=== PATIENT | male | born 1970 | race Caucasian/White ===

== ENCOUNTER 2020-07-19 17:31 | Inpatient (IN) | payer MEDICAID ==
[~2020-07-19] VITALS: Ht 175.3 cm; Wt 70.9 kg
[2020-07-19] MEDS ORDERED: morphine 4 MG/ML inj SYRINge IV PRN (18:25)
[2020-07-19] MEDS ORDERED: normal saline 1000ML IV soln IVB ONE (18:25)
[2020-07-19] MEDS ORDERED: ondansetron/PF 4mg/2ml inj IV ONE (18:25)
[2020-07-19 18:30] LABS: BASOPHILS % (AUTO) 0.2 % (0-1); EOSINOPHILS # (AUTO) 0.1 X10'3 (0-0.9); EOSINOPHILS % (AUTO) 0.9 % (0-6); HEMATOCRIT 40.4 % (42.0-52.0); HEMOGLOBIN 13.6 g/dl (14.0-17.9); LYMPHOCYTES % (AUTO) 11.2 % (21-51); MEAN CORPUSCULAR HEMOGLOBIN 31.7 PG (27.0-31.0); MEAN CORPUSCULAR HGB CONC 33.6 g/dL (33.0-36.5); MEAN CORPUSCULAR VOLUME 94.3 FL (78-98); MEAN PLATELET VOLUME 7.8 FL (7.4-10.4); MONOCYTES # (AUTO) 1.1 X10'3 (0-0.9); MONOCYTES % (AUTO) 12.8 % (2-12); NEUTROPHILS # (AUTO) 6.6 X10'3 (1.8-7.7); NEUTROPHILS % (AUTO) 74.9 % (42-75); PLATELET COUNT 223 X10'3 (140-440); RED BLOOD COUNT 4.29 X10'6 (4.70-6.10); RED CELL DISTRIBUTION WIDTH 13.1 % (11.5-14.5); WHITE BLOOD COUNT 8.8 X10'3 (4.5-11.0)
[2020-07-19 18:45] LABS: ALANINE AMINOTRANSFERASE 11 U/L (12-78); ALBUMIN 3.1 G/DL (3.4-5.0); ALBUMIN/GLOBULIN RATIO 0.6 (1.1-1.5); ALKALINE PHOSPHATASE 79 IU/L (46-116); ANION GAP 6 (8-16); ASPARTATE AMINO TRANSFERASE 11 U/L (10-37); BILIRUBIN,TOTAL 0.3 MG/DL (0.1-1.0); BLOOD UREA NITROGEN 10 MG/DL (7-18); BUN/CREATININE RATIO 11.6 (5.4-32.0); CALCIUM 8.7 MG/DL (8.5-10.1); CHLORIDE 103 MMOL/L (99-107); CREATININE 0.86 MG/DL (0.60-1.10); GLUCOSE 94 MG/DL (70-104); LIPASE 92 U/L (73-393); POTASSIUM 4.2 MMOL/L (3.5-5.1); SODIUM 141 MMOL/L (135-145); TOTAL CARBON DIOXIDE 31.7 MMOL/L (24-32); TOTAL PROTEIN 8.1 G/DL (6.4-8.2); eGFR > 90 ML/MIN
[2020-07-19] MEDS ORDERED: piperacillin/tazo 3.375gm/50ml 50 ML IV ONE (20:25)
[2020-07-19] MEDS ORDERED: bisacodyl 10mg suppository rectal RC PRN (20:35)
[2020-07-19] MEDS ORDERED: magnesium 2GM in 50ml NS 50 ML IV PRN (20:35)
[2020-07-19] MEDS ORDERED: ondansetron/PF 4mg/2ml inj IV PRN (20:35)
[2020-07-19] MEDS ORDERED: magnesium 4gm in 100ml NS 100 ML IV PRN (20:35)
[2020-07-19] MEDS ORDERED: metoclopramide 5 mg/ml inj IV PRN (20:35)
[2020-07-19] MEDS ORDERED: acetaminophen 325mg tablet PO PRN ×2 (20:35)
[2020-07-19] MEDS ORDERED: magnesium Cl slow-release 64mg tablet PO PRN (20:35)
[2020-07-19] MEDS ORDERED: mag hydrox/Alum hydrox/simeth 30ml oral suspension PO PRN (20:35)
[2020-07-19] MEDS ORDERED: HYDROcodone/acetaminophen 5mg/325mg tablet PO PRN (20:35)
[2020-07-19] MEDS ORDERED: potassium CL 10mEq/100ml bag 100 ML IV PRN ×2 (20:35)
[2020-07-19] MEDS ORDERED: magnesium hydroxide 30ml (MOM) UD suspension PO PRN (20:35)
[2020-07-19] MEDS ORDERED: potassium Cl 20 mEq SR tablet PO PRN ×2 (20:35)
[2020-07-19] MEDS ORDERED: LEVE750T6 PO (20:48)
[2020-07-19] MEDS ORDERED: LAMO150T2 PO (20:49)
[2020-07-19 20:51] LABS: PARTIAL THROMBOPLASTIN TIME 32 SECONDS (22-32)
--- NOTE | 2020-07-19 21:04 | NUR ---
Received report from Hemanth RENAE in the ER. Patient arrived at unit at 2145 on a gurney he was able to walk 10 feet to the bed, s.l., a/o, room air,vss, no sign of distress will continue to monitor
--- NOTE | 2020-07-19 21:23 | NUR ---
MD Knight at bedside
[2020-07-19] MEDS: normal saline 1000ml 1,000 ML IV SCH (21:58)
[2020-07-19 22:00] VITALS: BP 102/63
[2020-07-19] MEDS: HYDROmorphone inj. 0.5 MG/0.5 ML DISP.SYRIN IV PRN (22:07)
[2020-07-20] VITALS (14 sets, daily range): BP systolic 89–148; BP diastolic 55–67
[2020-07-20] MEDS: HYDROcodone/acetaminophen 10/325mg tab PO PRN ×5 (00:46→22:54)
[2020-07-20 00:59] LABS: CLARITY,URINE CLEAR (Clear); COLOR,URINE YELLOW (Yellow); GLUCOSE, URINE NEGATIVE (Neg); KETONES,URINE NEGATIVE (Neg); LEUKOCYTE ESTERASE ,URINE NEGATIVE (Neg); NITRITES, URINE NEGATIVE (Neg); OCCULT BLOOD,URINE NEGATIVE (Neg); PROTEIN,URINE NEGATIVE (Neg); UROBILINOGEN,URINE 0.2 E.U/dL (0.2-1.0)
[2020-07-20 01:02] LABS: UA COLLECTION TYPE CLN CATCH MIDSTREAM
[2020-07-20] MEDS: piperacillin/tazo 3.375gm/50ml 50 ML IV SCH ×3 (05:17→22:24)
[2020-07-20 05:22] LABS: BASOPHILS % (AUTO) 0.5 % (0-1); EOSINOPHILS # (AUTO) 0.1 X10'3 (0-0.9); EOSINOPHILS % (AUTO) 1.2 % (0-6); HEMATOCRIT 37.8 % (42.0-52.0); HEMOGLOBIN 12.7 g/dl (14.0-17.9); LYMPHOCYTES # (AUTO) 1.4 X10'3 (1.1-4.8); LYMPHOCYTES % (AUTO) 15.5 % (21-51); MEAN CORPUSCULAR HEMOGLOBIN 31.7 PG (27.0-31.0); MEAN CORPUSCULAR HGB CONC 33.6 g/dL (33.0-36.5); MEAN CORPUSCULAR VOLUME 94.2 FL (78-98); MEAN PLATELET VOLUME 8.1 FL (7.4-10.4); MONOCYTES # (AUTO) 1.1 X10'3 (0-0.9); MONOCYTES % (AUTO) 12.1 % (2-12); NEUTROPHILS # (AUTO) 6.5 X10'3 (1.8-7.7); NEUTROPHILS % (AUTO) 70.7 % (42-75); PLATELET COUNT 197 X10'3 (140-440); RED BLOOD COUNT 4.01 X10'6 (4.70-6.10); RED CELL DISTRIBUTION WIDTH 13.3 % (11.5-14.5); WHITE BLOOD COUNT 9.2 X10'3 (4.5-11.0)
[2020-07-20 05:43] LABS: ALANINE AMINOTRANSFERASE 10 U/L (12-78); ALBUMIN 2.7 G/DL (3.4-5.0); ALBUMIN/GLOBULIN RATIO 0.6 (1.1-1.5); ALKALINE PHOSPHATASE 68 IU/L (46-116); ANION GAP 6 (8-16); ASPARTATE AMINO TRANSFERASE 9 U/L (10-37); BILIRUBIN,TOTAL 0.7 MG/DL (0.1-1.0); BLOOD UREA NITROGEN 10 MG/DL (7-18); BUN/CREATININE RATIO 10.8 (5.4-32.0); CALCIUM 8.6 MG/DL (8.5-10.1); CHLORIDE 107 MMOL/L (99-107); CREATININE 0.93 MG/DL (0.60-1.10); GLUCOSE 77 MG/DL (70-104); MAGNESIUM 2.1 MG/DL (1.5-2.4); POTASSIUM 4.2 MMOL/L (3.5-5.1); SODIUM 143 MMOL/L (135-145); TOTAL CARBON DIOXIDE 29.7 MMOL/L (24-32); eGFR 86 ML/MIN
--- NOTE | 2020-07-20 06:20 | NUR ---
Problems reprioritized. Patient report given, questions answered & plan of care reviewed with Shauna RENAE.
--- NOTE | 2020-07-20 06:33 | NUR ---
Patient in room [facility] 345. I have received report from BATOOL Pineda and had the opportunity to ask questions and assume patient care.
--- NOTE | 2020-07-20 06:36 | NUR ---
Patient in room [facility] 345. I have received report from BATOOL Pineda and had the opportunity to ask questions and assume patient care.
[2020-07-20] MEDS: levetiracetam 250mg tablet PO SCH ×2 (07:08→19:10)
[2020-07-20] MEDS: lamoTRIgine 100mg tablet PO SCH ×2 (07:08→19:10)
[2020-07-20] MEDS: lamoTRIgine 25mg tablet PO SCH ×2 (07:09→19:11)
[2020-07-20] MEDS: normal saline 1000ml 1,000 ML IV SCH ×3 (07:48→22:02)
[2020-07-20] MEDS: K and/or MAG REPLACEMENT MC SCH ×2 (08:00→20:00)
[2020-07-20] MEDS ORDERED: midazolam 2 mg/2 ml injection ONE (08:32)
[2020-07-20] MEDS ORDERED: fentaNYL/PF 50MCG/1 ML 2ML syringe ONE ×2 (08:32→09:04)
--- NOTE | 2020-07-20 08:35 | NUR ---
Patient was taken down to IR, 0835.
[2020-07-20] MEDS: HYDROmorphone inj. 0.5 MG/0.5 ML DISP.SYRIN IV PRN (09:47)
--- NOTE | 2020-07-20 10:08 | NUR ---
Patient arrive back to room 345B at 0935, A&O x4. pt complained of incisional pain. Pain intervention, Dilaudid, given as order by MD. Vital signs are stable. Patient is resting in bed.
--- NOTE | 2020-07-20 18:01 | NUR ---
Student documentation: I have reviewed and agree with all interventions, assessments performed and documented by SN Shirin. Student Medication Administration: For this medication-pass time frame, all medication were reviewed, dispensed, administered and documented per hospital policy by Sn Shirin.
--- NOTE | 2020-07-20 18:11 | NUR ---
Problems reprioritized. Patient report given, questions answered & plan of care reviewed with BATOOL Pineda.
--- NOTE | 2020-07-20 18:14 | NUR ---
Patient in room [facility] 345. I have received report from Shauna RENAE and had the opportunity to ask questions and assume patient care.
--- NOTE | 2020-07-20 18:50 | NUR ---
Problems reprioritized. Patient report given, questions answered & plan of care reviewed with BATOOL Pineda.
[2020-07-20] MEDS: magnesium hydroxide 30ml (MOM) UD suspension PO SCH (19:09)
[2020-07-20] MEDS: lactobacillus rhamnosus 10,000 MMU CELLS/CAPSULE PO SCH (19:10)
--- NOTE | 2020-07-20 21:35 | NUR ---
added jose in interventions under the wrong patient, completed it
[2020-07-21] VITALS: BP 88/58
[2020-07-21 05:04] LABS: BASOPHILS % (AUTO) 0.4 % (0-1); EOSINOPHILS # (AUTO) 0.1 X10'3 (0-0.9); EOSINOPHILS % (AUTO) 2.3 % (0-6); HEMATOCRIT 33.4 % (42.0-52.0); HEMOGLOBIN 11.6 g/dl (14.0-17.9); LYMPHOCYTES # (AUTO) 1.4 X10'3 (1.1-4.8); LYMPHOCYTES % (AUTO) 26.3 % (21-51); MEAN CORPUSCULAR HEMOGLOBIN 32.5 PG (27.0-31.0); MEAN CORPUSCULAR HGB CONC 34.6 g/dL (33.0-36.5); MEAN CORPUSCULAR VOLUME 94.2 FL (78-98); MEAN PLATELET VOLUME 7.5 FL (7.4-10.4); MONOCYTES # (AUTO) 0.8 X10'3 (0-0.9); MONOCYTES % (AUTO) 14.9 % (2-12); NEUTROPHILS # (AUTO) 2.9 X10'3 (1.8-7.7); NEUTROPHILS % (AUTO) 56.1 % (42-75); PLATELET COUNT 192 X10'3 (140-440); RED BLOOD COUNT 3.55 X10'6 (4.70-6.10); RED CELL DISTRIBUTION WIDTH 13.2 % (11.5-14.5); WHITE BLOOD COUNT 5.2 X10'3 (4.5-11.0)
[2020-07-21 05:27] LABS: ALANINE AMINOTRANSFERASE 10 U/L (12-78); ALBUMIN 2.4 G/DL (3.4-5.0); ALBUMIN/GLOBULIN RATIO 0.6 (1.1-1.5); ALKALINE PHOSPHATASE 66 IU/L (46-116); ANION GAP 5 (8-16); ASPARTATE AMINO TRANSFERASE 10 U/L (10-37); BILIRUBIN,TOTAL 0.3 MG/DL (0.1-1.0); BLOOD UREA NITROGEN 11 MG/DL (7-18); BUN/CREATININE RATIO 12.8 (5.4-32.0); CHLORIDE 102 MMOL/L (99-107); CREATININE 0.86 MG/DL (0.60-1.10); GLUCOSE 91 MG/DL (70-104); POTASSIUM 3.8 MMOL/L (3.5-5.1); SODIUM 137 MMOL/L (135-145); TOTAL PROTEIN 6.5 G/DL (6.4-8.2); eGFR > 90 ML/MIN
[2020-07-21] MEDS: HYDROcodone/acetaminophen 10/325mg tab PO PRN ×4 (05:38→20:33)
[2020-07-21] MEDS: piperacillin/tazo 3.375gm/50ml 50 ML IV SCH ×3 (05:39→22:24)
[2020-07-21] MEDS: normal saline 1000ml 1,000 ML IV SCH ×2 (05:57→16:28)
--- NOTE | 2020-07-21 06:22 | NUR ---
Problems reprioritized. Patient report given, questions answered & plan of care reviewed with Rosette RENAE.
[2020-07-21 07:00] VITALS: BP 90/52
[2020-07-21] MEDS: K and/or MAG REPLACEMENT MC SCH ×2 (08:00→20:00)
[2020-07-21] MEDS: magnesium hydroxide 30ml (MOM) UD suspension PO SCH ×2 (08:29→20:27)
[2020-07-21] MEDS: lamoTRIgine 25mg tablet PO SCH ×2 (08:30→20:27)
[2020-07-21] MEDS: levetiracetam 250mg tablet PO SCH ×2 (08:30→20:28)
[2020-07-21] MEDS: lamoTRIgine 100mg tablet PO SCH ×2 (08:30→20:27)
[2020-07-21] MEDS: lactobacillus rhamnosus 10,000 MMU CELLS/CAPSULE PO SCH ×2 (08:31→20:28)
[2020-07-21] MEDS: HYDROmorphone inj. 0.5 MG/0.5 ML DISP.SYRIN IV PRN (08:37)
[2020-07-21 11:00] VITALS: BP 94/62
--- NOTE | 2020-07-21 16:18 | NUR ---
Student documentation: I have reviewed all interventions, assessments performed and documented by Mary OJEDA and Asael OJEDA of [facility].
--- NOTE | 2020-07-21 18:40 | NUR ---
Problems reprioritized. Patient report given, questions answered & plan of care reviewed with BATOOL Mueller.
--- NOTE | 2020-07-21 18:42 | NUR ---
Patient in room [facility]IME 345. I have received report from ALVIN RENAE and had the opportunity to ask questions and assume patient care.
[2020-07-21 20:00] VITALS: BP 108/69
[2020-07-22] VITALS: BP 107/73
[2020-07-22] MEDS: normal saline 1000ml 1,000 ML IV SCH ×3 (02:36→22:30)
[2020-07-22] MEDS: HYDROcodone/acetaminophen 10/325mg tab PO PRN ×4 (02:40→20:12)
[2020-07-22] MEDS: piperacillin/tazo 3.375gm/50ml 50 ML IV SCH ×3 (05:53→22:25)
[2020-07-22 05:59] LABS: BASOPHILS % (AUTO) 0.5 % (0-1); EOSINOPHILS # (AUTO) 0.1 X10'3 (0-0.9); EOSINOPHILS % (AUTO) 2.5 % (0-6); HEMATOCRIT 36.5 % (42.0-52.0); HEMOGLOBIN 12.3 g/dl (14.0-17.9); LYMPHOCYTES # (AUTO) 1.2 X10'3 (1.1-4.8); LYMPHOCYTES % (AUTO) 21.3 % (21-51); MEAN CORPUSCULAR HGB CONC 33.8 g/dL (33.0-36.5); MEAN CORPUSCULAR VOLUME 94.7 FL (78-98); MEAN PLATELET VOLUME 7.4 FL (7.4-10.4); MONOCYTES # (AUTO) 0.9 X10'3 (0-0.9); MONOCYTES % (AUTO) 15.1 % (2-12); NEUTROPHILS # (AUTO) 3.5 X10'3 (1.8-7.7); NEUTROPHILS % (AUTO) 60.6 % (42-75); PLATELET COUNT 240 X10'3 (140-440); RED BLOOD COUNT 3.86 X10'6 (4.70-6.10); RED CELL DISTRIBUTION WIDTH 13.1 % (11.5-14.5); WHITE BLOOD COUNT 5.8 X10'3 (4.5-11.0)
[2020-07-22 06:01] LABS: ALANINE AMINOTRANSFERASE 13 U/L (12-78); ALBUMIN 2.8 G/DL (3.4-5.0); ALBUMIN/GLOBULIN RATIO 0.6 (1.1-1.5); ALKALINE PHOSPHATASE 69 IU/L (46-116); ANION GAP 5 (8-16); ASPARTATE AMINO TRANSFERASE 13 U/L (10-37); BILIRUBIN,TOTAL 0.3 MG/DL (0.1-1.0); BLOOD UREA NITROGEN 8 MG/DL (7-18); BUN/CREATININE RATIO 8.8 (5.4-32.0); CALCIUM 8.4 MG/DL (8.5-10.1); CHLORIDE 106 MMOL/L (99-107); CREATININE 0.91 MG/DL (0.60-1.10); GLUCOSE 82 MG/DL (70-104); MAGNESIUM 2.6 MG/DL (1.5-2.4); POTASSIUM 3.9 MMOL/L (3.5-5.1); SODIUM 140 MMOL/L (135-145); TOTAL PROTEIN 7.4 G/DL (6.4-8.2); eGFR 89 ML/MIN
--- NOTE | 2020-07-22 06:30 | NUR ---
Patient in room JAIME 345. I have received report from Ami RENAE and had the opportunity to ask questions and assume patient care.
[2020-07-22] MEDS: lactobacillus rhamnosus 10,000 MMU CELLS/CAPSULE PO SCH ×2 (07:29→20:11)
[2020-07-22] MEDS: levetiracetam 250mg tablet PO SCH ×2 (07:30→20:10)
[2020-07-22] MEDS: lamoTRIgine 25mg tablet PO SCH ×2 (07:31→20:10)
[2020-07-22] MEDS: lamoTRIgine 100mg tablet PO SCH ×2 (07:32→20:10)
[2020-07-22] MEDS: magnesium hydroxide 30ml (MOM) UD suspension PO SCH ×2 (07:33→20:00)
[2020-07-22 07:40] VITALS: BP 105/61
[2020-07-22] MEDS: K and/or MAG REPLACEMENT MC SCH ×2 (08:00→20:00)
[2020-07-22] MEDS: diatr meglu/diatrizoate 30ml oral sol.-(3 dose) bottle PO SCH ×3 (10:41→13:13)
[2020-07-22 11:00] VITALS: BP 93/57
--- NOTE | 2020-07-22 15:52 | NUR ---
Student documentation: I have reviewed all interventions, assessments performed and documented by Asael OJEDA from [facility].
[2020-07-22 18:00] VITALS: BP 112/66
--- NOTE | 2020-07-22 18:27 | NUR ---
Problems reprioritized. Patient report given, questions answered & plan of care reviewed with Ami RENAE.
--- NOTE | 2020-07-22 18:30 | NUR ---
Patient in room JAIME 345. I have received report from BOBY RENAE and had the opportunity to ask questions and assume patient care.
[2020-07-23] VITALS: BP 106/52
[2020-07-23] MEDS: piperacillin/tazo 3.375gm/50ml 50 ML IV SCH (05:21)
[2020-07-23 05:23] LABS: ALANINE AMINOTRANSFERASE 11 U/L (12-78); ALBUMIN 2.8 G/DL (3.4-5.0); ALBUMIN/GLOBULIN RATIO 0.6 (1.1-1.5); ALKALINE PHOSPHATASE 77 IU/L (46-116); ANION GAP 8 (8-16); ASPARTATE AMINO TRANSFERASE 11 U/L (10-37); BASOPHILS % (AUTO) 0.6 % (0-1); BILIRUBIN,TOTAL 0.2 MG/DL (0.1-1.0); BLOOD UREA NITROGEN 8 MG/DL (7-18); BUN/CREATININE RATIO 8.2 (5.4-32.0); CALCIUM 8.5 MG/DL (8.5-10.1); CHLORIDE 103 MMOL/L (99-107); CREATININE 0.98 MG/DL (0.60-1.10); EOSINOPHILS # (AUTO) 0.2 X10'3 (0-0.9); EOSINOPHILS % (AUTO) 3.6 % (0-6); GLUCOSE 110 MG/DL (70-104); HEMATOCRIT 39.3 % (42.0-52.0); HEMOGLOBIN 13.2 g/dl (14.0-17.9); LYMPHOCYTES # (AUTO) 1.3 X10'3 (1.1-4.8); LYMPHOCYTES % (AUTO) 22.9 % (21-51); MAGNESIUM 2.4 MG/DL (1.5-2.4); MEAN CORPUSCULAR HEMOGLOBIN 31.5 PG (27.0-31.0); MEAN CORPUSCULAR HGB CONC 33.5 g/dL (33.0-36.5); MEAN PLATELET VOLUME 7.7 FL (7.4-10.4); MONOCYTES # (AUTO) 0.9 X10'3 (0-0.9); MONOCYTES % (AUTO) 16.1 % (2-12); NEUTROPHILS # (AUTO) 3.3 X10'3 (1.8-7.7); NEUTROPHILS % (AUTO) 56.8 % (42-75); PLATELET COUNT 274 X10'3 (140-440); RED BLOOD COUNT 4.19 X10'6 (4.70-6.10); RED CELL DISTRIBUTION WIDTH 13.3 % (11.5-14.5); SODIUM 139 MMOL/L (135-145); TOTAL CARBON DIOXIDE 28.5 MMOL/L (24-32); TOTAL PROTEIN 7.5 G/DL (6.4-8.2); WHITE BLOOD COUNT 5.7 X10'3 (4.5-11.0); eGFR 81 ML/MIN
--- NOTE | 2020-07-23 06:30 | NUR ---
Problems reprioritized. Patient report given, questions answered & plan of care reviewed with BRIAN RENAE.
--- NOTE | 2020-07-23 06:39 | NUR ---
Patient in room JAIME 340. I have received report from BATOOL Mueller and had the opportunity to ask questions and assume patient care.
[2020-07-23] MEDS: lactobacillus rhamnosus 10,000 MMU CELLS/CAPSULE PO SCH (07:16)
[2020-07-23] MEDS: levetiracetam 250mg tablet PO SCH (07:17)
[2020-07-23] MEDS: lamoTRIgine 100mg tablet PO SCH (07:17)
[2020-07-23] MEDS: lamoTRIgine 25mg tablet PO SCH (07:17)
[2020-07-23] MEDS: K and/or MAG REPLACEMENT MC SCH (07:19)
[2020-07-23] MEDS: magnesium hydroxide 30ml (MOM) UD suspension PO SCH (08:00)
[2020-07-23 09:54] VITALS: BP 103/65
[2020-07-23] MEDS ORDERED: LEVO500T89 PO (10:01)
[2020-07-23] MEDS ORDERED: METR-159 PO (10:01)
[2020-07-23] MEDS ORDERED: HYDR-4383 PO (10:01)
--- NOTE | 2020-07-23 11:54 | NUR ---
Shirin OJEDA, went over discharge paperwork with patient (Kelly). Patient was alert and oriented x4 when going over discharge paperwork. Allowed time for questions and concerns. Patient stated that he understood the discharge packet and was going to make a follow up appointment with the primary provider. Patient was given a paper prescription for [place] and was made aware about the side affects of the medication. Patient was discharged with all personal belongings and escorted down by hospital personale.
--- NOTE | 2020-07-23 11:56 | NUR ---
Student Medication Administration: For this medication-pass time frame, all medication were reviewed, dispensed, administered and documented per hospital policy by SN Shirin. Student documentation: I have reviewed and agree with all interventions, assessments performed and documented by BATOOL Carpio .
--- NOTE | 2020-07-23 12:00 | NUR ---
Patient alert and oriented in no apparent acute distress and with no complaints. Discharge instructions and new prescriptions discussed with patient by SN Shirin. This RN followed up with patient with discharge teaching and asked if he had any questions. [place] education reinforced. All questions answered. Patient was dc'd with all personal belongings. He was escorted out in wheelchair with varnishing unit operatorNichole. Addendum: 07/23/20 at 1237 by Shauna Dasilva RN patient MATT drain was removed by IR prior to DC. Dressing to where Matt insertion site was CDI. [place] prescription was handed to patient.
== END 2020-07-23 11:26 | disposition home or self-care (01) | DRG 244 ==
LOC: ER 17:33 → ED HOLD 20:34 → SUR 3N 21:45
PROVIDERS: ADMIT Family Medicine; ATTEND Family Medicine
DX: K57.20 Diverticulitis of large intestine with perforation and abscess without bleeding (principal); D64.9 Anemia, unspecified; G40.909 Epilepsy, unspecified, not intractable, without status epilepticus; K59.00 Constipation, unspecified
CPT/HCPCS: 36415; 49406; 71045; 74176; 80053; 81003; 83605; 83690; 83735; 85025; 85610; 85730; 87040; 87070; 87077; 87081; 87186; 93005; 96374; 99285; G0378; J1170; J2250; J2270; J2405; J2543; J3010; J7030; Q9963

== ENCOUNTER 2020-11-10 18:53 | Emergency (ER) | payer MEDICAID ==
[~2020-11-10] VITALS: Ht 172.7 cm; Wt 72.7 kg
[~2020-11-10 18:53] MED LIST: HYDR-4383 PO; LAMO150T2 PO; LEVE750T6 PO
[2020-11-10 19:23] LABS: BASOPHILS % (AUTO) 0.5 % (0-1); EOSINOPHILS % (AUTO) 0.5 % (0-6); LYMPHOCYTES % (AUTO) 10.7 % (21-51); MEAN CORPUSCULAR HEMOGLOBIN 32.1 PG (27.0-31.0); MEAN CORPUSCULAR HGB CONC 34.1 g/dL (33.0-36.5); MEAN PLATELET VOLUME 8.4 FL (7.4-10.4); MONOCYTES # (AUTO) 0.5 X10'3 (0-0.9); MONOCYTES % (AUTO) 5.4 % (2-12); NEUTROPHILS # (AUTO) 7.7 X10'3 (1.8-7.7); NEUTROPHILS % (AUTO) 82.9 % (42-75); PLATELET COUNT 147 X10'3 (140-440); RED BLOOD COUNT 4.37 X10'6 (4.70-6.10); RED CELL DISTRIBUTION WIDTH 13.4 % (11.5-14.5); WHITE BLOOD COUNT 9.3 X10'3 (4.5-11.0)
[2020-11-10 19:41] LABS: ALANINE AMINOTRANSFERASE 17 U/L (12-78); ALBUMIN 3.6 G/DL (3.4-5.0); ALBUMIN/GLOBULIN RATIO 0.8 (1.1-1.5); ALKALINE PHOSPHATASE 95 IU/L (46-116); AMYLASE 33 U/L (25-115); ANION GAP 9 (8-16); ASPARTATE AMINO TRANSFERASE 14 U/L (10-37); BLOOD UREA NITROGEN 12 MG/DL (7-18); BUN/CREATININE RATIO 10.9 (5.4-32.0); CHLORIDE 102 MMOL/L (99-107); GLUCOSE 89 MG/DL (70-104); LIPASE 95 U/L (73-393); POTASSIUM 3.6 MMOL/L (3.5-5.1); SODIUM 139 MMOL/L (135-145); TOTAL CARBON DIOXIDE 27.7 MMOL/L (24-32); TOTAL PROTEIN 7.9 G/DL (6.4-8.2); eGFR 71 ML/MIN
[2020-11-10] MEDS ORDERED: HYDR-3965 PO (21:05)
[2020-11-10] MEDS ORDERED: METR-159 PO (21:05)
[2020-11-10] MEDS ORDERED: ONDA4TAB6 PO (21:05)
[2020-11-10] MEDS ORDERED: CIPR-259 PO (21:05)
[2020-11-10] MEDS ORDERED: ciprofloxacin 250mg tablet PO ONE (21:15)
[2020-11-10] MEDS ORDERED: metroNIDAZOLE 500mg tablet PO ONE (21:15)
[2020-11-10 21:16] VITALS: BP 113/76
== END 2020-11-10 21:26 | disposition home or self-care (01) ==
LOC: ER 18:54
DX: R10.32 Left lower quadrant pain (principal); K59.00 Constipation, unspecified; Z79.2 Long term (current) use of antibiotics; Z79.899 Other long term (current) drug therapy
CPT/HCPCS: 36415; 80053; 82150; 83690; 85025; 99283; J3490

== ENCOUNTER 2022-07-06 19:02 | Emergency (ER) | payer MEDICAID ==
[~2022-07-06] VITALS: Ht 175.3 cm; Wt 81.8 kg
[~2022-07-06 19:02] MED LIST changes: +ONDA4TAB6 PO
[2022-07-06 19:39] LABS: BASOPHILS % (AUTO) 0.6 % (0-1); EOSINOPHILS # (AUTO) 0.1 X10'3 (0-0.9); EOSINOPHILS % (AUTO) 1.4 % (0-6); HEMATOCRIT 42.6 % (42.0-52.0); HEMOGLOBIN 14.7 g/dl (14.0-17.9); LYMPHOCYTES # (AUTO) 1.6 X10'3 (1.1-4.8); LYMPHOCYTES % (AUTO) 32.6 % (21-51); MEAN CORPUSCULAR HEMOGLOBIN 33.2 PG (27.0-31.0); MEAN CORPUSCULAR HGB CONC 34.4 g/dL (33.0-36.5); MEAN CORPUSCULAR VOLUME 96.3 FL (78-98); MEAN PLATELET VOLUME 8.4 FL (7.4-10.4); MONOCYTES # (AUTO) 0.6 X10'3 (0-0.9); MONOCYTES % (AUTO) 12.9 % (2-12); NEUTROPHILS # (AUTO) 2.5 X10'3 (1.8-7.7); NEUTROPHILS % (AUTO) 52.5 % (42-75); PLATELET COUNT 134 X10'3 (140-440); RED BLOOD COUNT 4.43 X10'6 (4.70-6.10); RED CELL DISTRIBUTION WIDTH 13.8 % (11.5-14.5); WHITE BLOOD COUNT 4.8 X10'3 (4.5-11.0)
[2022-07-06 19:56] LABS: ALANINE AMINOTRANSFERASE 20 U/L (12-78); ALBUMIN 3.5 G/DL (3.4-5.0); ALBUMIN/GLOBULIN RATIO 0.9 (1.1-1.5); ALKALINE PHOSPHATASE 89 IU/L (46-116); ANION GAP 6 (8-16); ASPARTATE AMINO TRANSFERASE 17 U/L (10-37); BILIRUBIN,TOTAL 0.3 MG/DL (0.1-1.0); BLOOD UREA NITROGEN 13 MG/DL (7-18); BUN/CREATININE RATIO 15.1 (5.4-32.0); CALCIUM 8.5 MG/DL (8.5-10.1); CHLORIDE 105 MMOL/L (99-107); CREATININE 0.86 MG/DL (0.60-1.10); GLUCOSE 88 MG/DL (70-104); MAGNESIUM 2.1 MG/DL (1.5-2.4); SODIUM 140 MMOL/L (135-145); TOTAL CARBON DIOXIDE 29.2 MMOL/L (24-32); TOTAL PROTEIN 7.4 G/DL (6.4-8.2); eGFR > 90 ML/MIN
[2022-07-06 20:04] LABS: ETHANOL < 0.010 GM/DL (0.0-0.010)
--- NOTE | 2022-07-06 20:27 | NUR ---
reoriented pt. as to why he is in the hospital. pt. still has confusion and does not remember the seizure. [facility] times for nurse to ask pt. where car keys are, pt is unable to remember at this time.
--- NOTE | 2022-07-06 21:12 | NUR ---
pt. remembers were keys are. roomate will come to hospital once she finds the car keys.
[2022-07-06 21:48] VITALS: BP 92/53
--- NOTE | 2022-07-06 23:11 | NUR ---
PT. IS BACK AT BASELINE. ABLE TO ANSWER QUESTIONS APPROPRIATELY.
== END 2022-07-06 23:31 | disposition home or self-care (01) ==
LOC: ER 19:03
DX: G40.909 Epilepsy, unspecified, not intractable, without status epilepticus (principal); Z86.69 Personal history of other diseases of the nervous system and sense organs; Z79.899 Other long term (current) drug therapy
CPT/HCPCS: 36415; 70450; 80053; 80177; 80320; 83735; 85025; 93005; 99285

== ENCOUNTER 2023-01-23 13:46 | Emergency (ER) | payer MEDICAID ==
[~2023-01-23] VITALS: Ht 172.7 cm; Wt 77.3 kg
[2023-01-23] MEDS ORDERED: LORazepam 1 MG tablet PO ONE (14:50)
[2023-01-23] MEDS ORDERED: lamoTRIgine 100mg tablet PO ONE (14:50)
[2023-01-23] MEDS ORDERED: lamoTRIgine 100mg tablet PO SCH (14:50)
[2023-01-23 15:52] VITALS: BP 110/78
== END 2023-01-23 15:55 | disposition home or self-care (01) ==
LOC: ER 13:46
DX: G40.909 Epilepsy, unspecified, not intractable, without status epilepticus (principal); Z79.899 Other long term (current) drug therapy
CPT/HCPCS: 99283

== ENCOUNTER 2023-04-30 16:08 | Emergency (ER) | payer MEDICAID ==
[~2023-04-30] VITALS: Ht 172.7 cm; Wt 77.3 kg
[2023-04-30 17:15] VITALS: BP 101/70; PULSE 89; RESP 16; TEMP 98.8; O2SAT 100
== END 2023-04-30 18:04 | disposition home or self-care (01) ==
LOC: ER 16:08
DX: F19.10 Other psychoactive substance abuse, uncomplicated (principal); F17.200 Nicotine dependence, unspecified, uncomplicated; F12.10 Cannabis abuse, uncomplicated; F15.10 Other stimulant abuse, uncomplicated; Z56.0 Unemployment, unspecified; Z79.899 Other long term (current) drug therapy
CPT/HCPCS: 93005; 99283; 99285

== ENCOUNTER 2023-05-07 00:50 | Emergency (ER) | payer MEDICAID ==
[~2023-05-07] VITALS: Ht 175.3 cm; Wt 79.5 kg
[2023-05-07 02:08] VITALS: TEMP 97.8
[2023-05-07] MEDS ORDERED: thiamine 100mg/ml 2ml inj. IV ONE (02:10)
[2023-05-07] MEDS ORDERED: normal saline 1000ml 1,000 ML IV ONE (02:10)
--- NOTE | 2023-05-07 02:18 | NUR ---
PT BIB [employer] FOR "MEDICAL CLEARANCE" AND LEFT PT IN BED 1. PER TRIAGE, PT WAS BROUGHT IN FOR LAC ON HEAD, AND IS NOT UNDER ARREST. PT UNCOOPERATIVE WITH ASSESSMENT AND VERBALLY AGGRESSIVE WITH ANY QUESTIONS OR CONTACT. PT APPEARS TO BE IN NAD, SLEEPING
[2023-05-07 03:28] LABS: BASOPHILS % (AUTO) 0.3 % (0-1); EOSINOPHILS % (AUTO) 0 % (0-6); HEMATOCRIT 40.5 % (42.0-52.0); HEMOGLOBIN 13.6 g/dl (14.0-17.9); LYMPHOCYTES # (AUTO) 0.4 X10'3 (1.1-4.8); LYMPHOCYTES % (AUTO) 3.5 % (21-51); MEAN CORPUSCULAR HEMOGLOBIN 32.3 PG (27.0-31.0); MEAN CORPUSCULAR HGB CONC 33.7 g/dL (33.0-36.5); MEAN CORPUSCULAR VOLUME 95.9 FL (78-98); MEAN PLATELET VOLUME 8.7 FL (7.4-10.4); MONOCYTES # (AUTO) 0.7 X10'3 (0-0.9); MONOCYTES % (AUTO) 5.5 % (2-12); NEUTROPHILS # (AUTO) 11.2 X10'3 (1.8-7.7); NEUTROPHILS % (AUTO) 90.7 % (42-75); PLATELET COUNT 196 X10'3 (140-440); RED BLOOD COUNT 4.22 X10'6 (4.70-6.10); RED CELL DISTRIBUTION WIDTH 13.8 % (11.5-14.5); WHITE BLOOD COUNT 12.3 X10'3 (4.5-11.0)
[2023-05-07 04:24] VITALS: PULSE 85
[2023-05-07 04:24] LABS: ALANINE AMINOTRANSFERASE 17 U/L (12-78); ALBUMIN 3.8 G/DL (3.4-5.0); ALBUMIN/GLOBULIN RATIO 1.1 (1.1-1.5); ALKALINE PHOSPHATASE 85 IU/L (46-116); ANION GAP 11 (8-16); ASPARTATE AMINO TRANSFERASE 25 U/L (10-37); BILIRUBIN,TOTAL 0.8 MG/DL (0.1-1.0); BLOOD UREA NITROGEN 14 MG/DL (7-18); BUN/CREATININE RATIO 14.1 (10.0-20.0); CALCIUM 8.6 MG/DL (8.5-10.1); CHLORIDE 109 MMOL/L (99-107); CREATININE 0.99 MG/DL (0.60-1.10); GLUCOSE 101 MG/DL (70-104); POTASSIUM 4.3 MMOL/L (3.5-5.1); SODIUM 146 MMOL/L (135-145); TOTAL CARBON DIOXIDE 26.1 MMOL/L (24-32); TOTAL PROTEIN 7.3 G/DL (6.4-8.2); eGFR 79 ML/MIN
[2023-05-07 04:38] LABS: ETHANOL < 10 MG/DL (<10)
[2023-05-07] MEDS ORDERED: naloxone 0.4 mg/ml inj IV ONE ×2 (05:10→05:25)
[2023-05-07 05:42] VITALS: BP 112/73; RESP 16; O2SAT 96
[2023-05-07] MEDS ORDERED: NALO4SPR BOTHNARES (05:55)
--- NOTE | 2023-05-07 06:07 | NUR ---
0600 AT DC, PT BECAME AGGRESSIVE, REFUSING TO SIGN DC PAPERWORK AND ALLOW VITALS, THEN SPIT ON PRIMARY RN. ESCORTED OFF PROPERTY BY SECURITY WITH DC INSTR AND RX PLACED IN POCKET
== END 2023-05-07 06:42 | disposition home or self-care (01) ==
LOC: ER 00:51
DX: S02.40CA Maxillary fracture, right side, initial encounter for closed fracture (principal); F19.10 Other psychoactive substance abuse, uncomplicated; F12.90 Cannabis use, unspecified, uncomplicated; F15.90 Other stimulant use, unspecified, uncomplicated; Z59.00 Homelessness unspecified; Z72.89 Other problems related to lifestyle; Z87.19 Personal history of other diseases of the digestive system; Z79.899 Other long term (current) drug therapy; X58.XXXA Exposure to other specified factors, initial encounter; Y93.89 Activity, other specified; Y92.89 Other specified places as the place of occurrence of the external cause; Y99.8 Other external cause status
CPT/HCPCS: 36415; 70450; 70486; 72125; 80053; 80320; 84484; 85025; 96361; 96374; 96375; 99285; J2310; J3411; J7030

== ENCOUNTER 2023-05-07 08:59 | Emergency (ER) | payer MEDICAID ==
[~2023-05-07] VITALS: Ht 152.4 cm; Wt 79.5 kg
[~2023-05-07 08:59] MED LIST changes: +NALO4SPR BOTHNARES
[2023-05-07 09:13] VITALS: BP 140/88; PULSE 111; RESP 20; TEMP 98; O2SAT 94
== END 2023-05-07 09:45 | disposition home or self-care (01) ==
LOC: ER 09:00
DX: S00.83XA Contusion of other part of head, initial encounter (principal); F12.90 Cannabis use, unspecified, uncomplicated; F15.90 Other stimulant use, unspecified, uncomplicated; Z72.89 Other problems related to lifestyle; Z79.899 Other long term (current) drug therapy; X58.XXXA Exposure to other specified factors, initial encounter; Y93.89 Activity, other specified; Y92.89 Other specified places as the place of occurrence of the external cause; Y99.8 Other external cause status
CPT/HCPCS: 99283

== ENCOUNTER 2023-12-10 19:02 | Emergency (ER) | payer MEDICAID ==
[~2023-12-10] VITALS: Ht 175.3 cm; Wt 68.2 kg
[2023-12-10 19:47] LABS: BASOPHILS % (AUTO) 0.3 % (0-1); EOSINOPHILS % (AUTO) 0.7 % (0-6); HEMATOCRIT 42.5 % (42.0-52.0); HEMOGLOBIN 14.3 g/dl (14.0-17.9); LYMPHOCYTES # (AUTO) 1.6 X10'3 (1.1-4.8); LYMPHOCYTES % (AUTO) 26.9 % (21-51); MEAN CORPUSCULAR HEMOGLOBIN 31.7 PG (27.0-31.0); MEAN CORPUSCULAR HGB CONC 33.7 g/dL (33.0-36.5); MEAN CORPUSCULAR VOLUME 94.1 FL (78-98); MEAN PLATELET VOLUME 8.5 FL (7.4-10.4); MONOCYTES # (AUTO) 0.6 X10'3 (0-0.9); MONOCYTES % (AUTO) 9.7 % (2-12); NEUTROPHILS # (AUTO) 3.7 X10'3 (1.8-7.7); NEUTROPHILS % (AUTO) 62.4 % (42-75); PLATELET COUNT 161 X10'3 (140-440); RED BLOOD COUNT 4.51 X10'6 (4.70-6.10); WHITE BLOOD COUNT 5.9 X10'3 (4.5-11.0)
[2023-12-10 20:12] LABS: ALBUMIN 3.9 G/DL (3.4-5.0); ANION GAP 7 (8-16); BLOOD UREA NITROGEN 12 MG/DL (7-18); BUN/CREATININE RATIO 15.6 (10.0-20.0); CALCIUM 8.2 MG/DL (8.5-10.1); CHLORIDE 105 MMOL/L (99-107); CREATININE 0.77 MG/DL (0.60-1.10); ETHANOL < 10 MG/DL (<10); GLUCOSE 109 MG/DL (70-104); POTASSIUM 3.2 MMOL/L (3.5-5.1); SODIUM 142 MMOL/L (135-145); TOTAL CARBON DIOXIDE 30.3 MMOL/L (24-32); eCRCL 108 ML/MIN; eGFR > 90 ML/MIN
[2023-12-10 21:49] VITALS: BP 107/63; PULSE 89; RESP 16; TEMP 97.9; O2SAT 98
== END 2023-12-10 21:56 | disposition home or self-care (01) ==
LOC: ER 19:02
DX: G40.909 Epilepsy, unspecified, not intractable, without status epilepticus (principal); F12.90 Cannabis use, unspecified, uncomplicated; F15.90 Other stimulant use, unspecified, uncomplicated; Z79.899 Other long term (current) drug therapy; Z79.2 Long term (current) use of antibiotics
CPT/HCPCS: 36415; 80048; 80177; 80320; 82542; 85025; 93005; 99284